=== PATIENT | female | born 1965 | race Native Hawaiian/Other Pacific Islander ===

== ENCOUNTER 2024-06-21 07:32 | Day surgery (SDC) | payer BC ==
[~2024-06-21] VITALS: Ht 157.5 cm; Wt 81.0 kg
[~2024-06-21 07:32] MED LIST: Lactated Ringer's 1,000 ML IV ONE; propofoL 50 ML IV ONE
[2024-06-21] MEDS ORDERED: ATOR20 (08:03)
[2024-06-21] MEDS ORDERED: ALLO100 (08:05)
[2024-06-21] MEDS ORDERED: JARDIANCE25 MG (08:05)
[2024-06-21] MEDS ORDERED: METFORMIN HCL500 M3 (08:06)
[2024-06-21] MEDS ORDERED: BUDESONIDE-FO10.2 G2 (08:06)
[2024-06-21] MEDS ORDERED: Lactated Ringer's 1,000 ML IV ONE (08:58)
== END 2024-06-21 10:11 | disposition home or self-care (01) ==
LOC: ORSCSDS 07:32
PROVIDERS: Internal Medicine Gastroenterology
PROC: 0DBH8ZX Excision of Cecum, Via Natural or Artificial Opening Endoscopic, Diagnostic (ICD-10-PCS; principal; 2024-06-21 09:00)
PROC: 0DB68ZX Excision of Stomach, Via Natural or Artificial Opening Endoscopic, Diagnostic (ICD-10-PCS; principal; 2024-06-21 09:00)
PROC: 0DBK8ZX Excision of Ascending Colon, Via Natural or Artificial Opening Endoscopic, Diagnostic (ICD-10-PCS; principal; 2024-06-21 09:00)
DX: R13.10 Dysphagia, unspecified (principal); K21.9 Gastro-esophageal reflux disease without esophagitis; D12.0 Benign neoplasm of cecum; D12.2 Benign neoplasm of ascending colon; K57.30 Diverticulosis of large intestine without perforation or abscess without bleeding; Z12.11 Encounter for screening for malignant neoplasm of colon; E13.9 Other specified diabetes mellitus without complications; I73.9 Peripheral vascular disease, unspecified; R12 Heartburn; J45.909 Unspecified asthma, uncomplicated; Z79.84 Long term (current) use of oral hypoglycemic drugs; Z79.899 Other long term (current) drug therapy; Z87.891 Personal history of nicotine dependence
CPT/HCPCS: 82947; 88305; 88342; J2704; J7120